=== PATIENT | female | born 1985 | race Caucasian/White ===

== ENCOUNTER 2018-11-15 08:06 | Emergency (ER) | payer MEDICAID ==
[~2018-11-15] VITALS: Ht 170.2 cm; Wt 105.2 kg
[2018-11-15 08:15] VITALS: Ht 170.2 cm; Wt 105.2 kg
[2018-11-15 09:11] LABS: BASOPHIL % 1.1 % (0-2); PLATELET COUNT 198 x10^3mcL (130-400); RED CELL DISTRIBUTION WIDTH 13.5 % (11.5-14.5)
[2018-11-15 10:51] LABS: T4(THYROXINE) 9.8 ug/dL (4.7-13.3)
[2018-11-15 11:18] VITALS: BP 141/72
== END 2018-11-15 11:19 | disposition home or self-care (01) ==
LOC: ED 08:06
PROVIDERS: Emergency Medicine
DX: N93.8 Other specified abnormal uterine and vaginal bleeding (principal)
CPT/HCPCS: 36415